=== PATIENT | male | born 1980 | race Two or more races ===

== ENCOUNTER → 2024-03-26 10:26 | Outpatient (REF) | payer OTHER, SELFPAY ==
--- NOTE | 2024-03-26 12:29 | W.PN.UPDATE ---
Update Note
Progress Note Update
patient set up for coronary CTA. carries dx of asthma. mostly inhaler use when sick. Last useof inhaler a year ago . no wheezing lately and lungs clear. Based on the above I felt it was ok to use metoprolol. reviewed with the patient. Metoprolol
25mg given
== END ==
LOC: RAD 10:26
PROVIDERS: ATTENDING PHYSICIAN Internal Medicine Cardiovascular Disease; FAMILY PHYSICIAN Nurse Practitioner Adult Health
DX: R07.9 Chest pain, unspecified (principal); R94.31 Abnormal electrocardiogram [ECG] [EKG]
CPT/HCPCS: 75574; Q9967